=== PATIENT | male | born 1965 | race Caucasian/White ===

== ENCOUNTER 2019-04-17 20:34 | Emergency (ER) | payer SELFPAY ==
[~2019-04-17] VITALS: Ht 172.7 cm; Wt 74.8 kg
[2019-04-17 20:44] VITALS: BP 137/102
[2019-04-17] MEDS: FLUORESCEIN OPTH STRIP 0.6 MG OP ONE (21:03)
[2019-04-17] MEDS: TETRACAINE HCL/PF 0.5% OPTH 4 ML BTL OP ONE (21:04)
[2019-04-17 21:38] VITALS: BP 137/102
== END 2019-04-17 21:35 | disposition home or self-care (01) ==
LOC: MED 20:34
DX: H57.12 Ocular pain, left eye (principal)
CPT/HCPCS: 99283